=== PATIENT | male | born 1955 | race Caucasian/White ===

== ENCOUNTER 2018-06-20 19:12 | Emergency (ER) | payer SELFPAY ==
--- OUTSIDE RECORDS SUMMARY | 2018-06-20 19:15 | XMS REPORT ---
Author Author [facility] Address Unknown Phone Unavailable Care Team Providers Care Pi/Senior Research Associate Name Role Phone Unavailable Unavailable Payers Payer Name Policy Type Policy Number Effective Date Expiration Date Problems This patient has no known problems. Allergies, Adverse Reactions, Alerts Allergy Name Allergy Type Status Severity Reaction(s) Onset Date Inactive Date Treating Clinician Comments carina Ervin 2013-10-10 00:00:00 Medications This patient has no known medications.
== END 2018-06-20 20:30 | disposition left against medical advice (07) ==
LOC: FSED 19:12
DX: I99.9 Unspecified disorder of circulatory system (principal)